=== PATIENT | female | born 1965 | race Caucasian/White ===

== ENCOUNTER → 2017-09-10 | Outpatient (CLI) | payer OTHER ==
--- NOTE | 2017-09-10 10:56 | REPMRS ---
Patient History The patient states she had a clinical breast exam in 09/11 Patient had first child at age 33. No known family history of cancer. Took hormonal contraceptives for 10 years. Digital Woman Screen Mammo: September 10, 2017 - Exam #: [id number] Bilateral CC and MLO view(s) were taken. Technologist: Aviva Lester, Technologist Prior study comparison: January 17, 2016, digital bilateral screening mammo, performed at [facility]. October 09, 2014, bilateral bilat screen digital mammo, performed at [facility] ([facility]). FINDINGS: The breast tissue is heterogeneously dense. This may lower the sensitivity of mammography. There is a fairly symmetric fibroglandular pattern in both breasts. There has been no interval development of masses, areas of architectural distortion or clusters of microcalcifications typical of malignancy. ASSESSMENT: BI-RADS/ACR category 2 mammogram. Benign finding(s). Recommendation Routine screening mammogram of both breasts in 1 year (for women over age 40). This mammogram was interpreted with the aid of an FDA-approved computer-aided dectection system. Electronically Signed By: Benitez Marquez MD 09/10/17 1306
== END ==
LOC: M WHC 09:41
PROVIDERS: ATTEND Family Medicine
DX: Z12.31 Encounter for screening mammogram for malignant neoplasm of breast (principal)

== ENCOUNTER → 2018-05-18 | Outpatient (REF) | payer OTHER ==
[2018-05-18 17:44] LABS: RHEUMATOID FACTOR QUANT < 10.0 IU/ML (<15.0)
[2018-05-18 17:44] LABS: C REACTIVE PROTEIN QUANTITATIV 0.39 MG/DL (0.00-0.30)
[2018-05-20 15:06] LABS: ANTINUCLEAR ANTIBODIES DIRECT Negative (Negative)
== END ==
LOC: M LAB REF 16:47
DX: M25.50 Pain in unspecified joint (principal); R25.2 Cramp and spasm

== ENCOUNTER → 2018-09-23 | Outpatient (CLI) | payer OTHER | LOC: M WHC 09:48 | DX: Z12.31 Encounter for screening mammogram for malignant neoplasm of breast (principal); Z92.0 Personal history of contraception | CPT/HCPCS: 77067 ==

== ENCOUNTER → 2019-08-04 | Outpatient (REF) | payer OTHER ==
[2019-08-04 16:51] LABS: APPEARANCE, URINE MANUAL CLOUDY (CLEAR); BILIRUBIN, URINE MANUAL OBSCURED (NEGATIVE); COLOR, URINE MANUAL DK YELLOW (YELLOW); GLUCOSE, URINE (UA) MANUAL OBSCURED mg/dL (NEGATIVE); KETONE, URINE MANUAL OBSCURED mg/dL (NEGATIVE); LEUKOCYTE ESTERASE, URINE MAN OBSCURED (NEGATIVE); NITRITE, URINE MANUAL OBSCURED (NEGATIVE); PH,URINE MAN OBSCURED UNITS (5.0 - 7.0); PROTEIN, URINE MANUAL OBSCURED mg/dL (NEGATIVE); SPECIFIC GRAVITY,URINE MANUAL 1.013 (1.002-1.035); UROBILINOGEN, URINE MANUAL OBSCURED mg/dl (NORMAL)
[2019-08-04 16:52] LABS: BLOOD URINE MANUAL OBSCURED (NEGATIVE)
[2019-08-04 17:14] LABS: BACTERIA, URINE LARGE AMOUNT; RBC, URINE TNTC /hpf (0-3); SQUAMOUS EPITHELIAL CELL URINE SMALL AMOUNT /hpf (SMALL AMT); TRANSITIONAL EPI CELLS, URINE LARGE AMOUNT /hpf; WBC, URINE TNTC /hpf (0-3)
[2019-08-04 17:15] LABS: HYALINE CAST, URINE NONE SEEN /lpf (0-1)
== END ==
LOC: M SFHCCAPE 09:52
PROVIDERS: ATTEND Physician Assistant
DX: R30.0 Dysuria (principal)

== ENCOUNTER → 2020-08-14 | Outpatient (CLI) | payer OTHER ==
[~2020-08-14] MED LIST: METHACHOLINE KIT (J7674) INH ONE
--- NOTE | 2020-08-14 10:21 | PFTRPT ---
Height: 68.00 Inches Weight: 170.00 Lbs BSA: 1.91 Diagnosis: R05 DATE: 08/14/2020 Ordering Provider: Leslie Celeste RN, ANP Quality: Study is excellent technical quality. Procedure: Under protocol, methacholine is administered. Even after a maximum dose of 25 mg or 188.875 CVUs, no provocation dose ever achieved. IMPRESSION: Negative methacholine challenge study. MTDD
== END ==
LOC: M CARPUL 09:25
PROVIDERS: ATTEND Nurse Practitioner Adult Health
DX: R05 Cough (principal)
CPT/HCPCS: 94070; J7674

== ENCOUNTER → 2020-10-03 | Outpatient (CLI) | payer OTHER ==
--- NOTE | 2020-10-03 15:56 | REPVR ---
PROCEDURE INFORMATION: Exam: CT Maxillofacial Without Contrast, Sinus Exam date and time: 10/03/2020 3:31 PM Age: 55 years old Clinical indication: Sinusitis; Chronic; Additional info: Chronic pansinusitis TECHNIQUE: Imaging protocol: CT Maxillofacial without contrast. Focus on the sinuses. Axial and coronal reformatted images were created and reviewed. Radiation optimization: All CT scans at this facility use at least one of these dose optimization techniques: automated exposure control; mA and/or kV adjustment per patient size (includes targeted exams where dose is matched to clinical indication); or iterative reconstruction. COMPARISON: No relevant prior studies available. FINDINGS: Frontal sinuses: Normal. No air-fluid levels. Ethmoid air cells: Minimal ethmoid mucosal thickening. No air-fluid levels. Sphenoid sinuses: Tiny left sphenoid sinus polyp versus mucous retention cyst. No air-fluid levels. Maxillary sinuses: Normal. No air-fluid levels. Ostiomeatal units patent. Nasal cavity/Septum: Unremarkable. Orbital cavity: Orbits are normal. Globes unremarkable. Bones/joints: Unremarkable. Soft tissues: Unremarkable. IMPRESSION: Minimal chronic paranasal sinus disease, as described above. Electronically signed by: Robert Boyd On 10/03/2020 15:56:19 PM
== END ==
LOC: M RAD 15:13
PROVIDERS: ATTEND Specialist
DX: J32.4 Chronic pansinusitis (principal); J34.2 Deviated nasal septum

== ENCOUNTER → 2021-01-03 | Outpatient (CLI) | payer OTHER ==
[~2021-01-03] MED LIST changes: +AMBI10TA PO; +FISH1000 PO; +FLON1SPR; +HYDR-3490 PO; +IRON27TA2 PO; +LORA-243 PO; +LOSA50TA88 PO; -METHACHOLINE KIT (J7674) INH ONE; +MIRA3350 PO; +PANT40TA29 PO; +PRESCAP PO; +SING10TA32 PO
== END ==
LOC: M LABSMTC 10:10
PROVIDERS: ATTEND Anesthesiology
DX: Z01.812 Encounter for preprocedural laboratory examination (principal); Z20.822 Contact with and (suspected) exposure to COVID-19

== ENCOUNTER 2021-01-08 07:16 | Day surgery (SDC) | payer OTHER ==
[~2021-01-08] VITALS: Ht 172.7 cm; Wt 78.9 kg
[2021-01-08] MEDS ORDERED: PERCOCET PO (07:40)
[2021-01-08] MEDS ORDERED: DOXY-350 PO (07:40)
[2021-01-08] MEDS ORDERED: MIDAZOLAM INJ 2MG/2ML VIAL (J2250 PER 1MG) As Ordered ONE (08:43)
[2021-01-08] MEDS ORDERED: fentaNYL 100 MCG/2 ML INJECTION (J3010) As Ordered ONE ×2 (08:43→09:59)
[2021-01-08] MEDS ORDERED: ONDANSETRON 4MG/2ML VIAL As Ordered ONE (08:43)
[2021-01-08] MEDS ORDERED: LIDOCAINE 2% 100MG/5ML SDV (FOR ANES.) As Ordered ONE (08:43)
[2021-01-08] MEDS ORDERED: dexameTHASONE 4 MG/ML 1ML VIAL (J1100 PER 1MG) As Ordered ONE (08:43)
[2021-01-08] MEDS ORDERED: ROCURONIUM BROMIDE 50 MG/5 ML VIAL As Ordered ONE (08:43)
[2021-01-08] MEDS ORDERED: propofoL 200 MG/20 ML VIAL As Ordered ONE (08:43)
[2021-01-08] MEDS ORDERED: LIDOCAINE W/EPINEPHRINE 1% 20ML VIAL As Ordered ONE (09:25)
[2021-01-08] MEDS ORDERED: OXYMETAZOLINE 0.05% NASAL SPRAY (AFRIN) As Ordered ONE (09:26)
[2021-01-08] MEDS ORDERED: METHYLENE BLUE 0.5% (5MG/ML) 10 ML AMP (PROVAYBLUE) As Ordered ONE (09:27)
[2021-01-08] MEDS ORDERED: ACETAMINOPHEN 1000MG 100ML IV BTL (OFIRMEV) (J0131 PER 10MG) As Ordered ONE (09:57)
[2021-01-08] MEDS ORDERED: SUGAMMADEX SODIUM 500 MG/5 ML VIAL (BRIDION) As Ordered ONE (10:15)
[2021-01-08] MEDS ORDERED: PHENYLephrine 500MCG 5ML (100MCG/ML) SYRINGE As Ordered ONE (10:29)
[2021-01-08] MEDS ORDERED: ePHEDrine SULFATE 25 MG/5 ML(5MG/ML) SYRINGE As Ordered ONE (10:29)
[2021-01-08] MEDS ORDERED: oxyCODONE 5MG TAB PO PRN (11:00)
[2021-01-08] MEDS ORDERED: LR 1,000 ML IV SCH (11:00)
[2021-01-08] MEDS ORDERED: HYDROMORPHONE HCL 0.5 MG/ 0.5 ML SYRINGE (J1170 PER 1) IV PRN (11:00)
[2021-01-08] MEDS ORDERED: ONDANSETRON 4MG/2ML VIAL IV PRN (11:00)
[2021-01-08] MEDS ORDERED: PERCOCET 5MG/325MG TAB PO PRN (11:00)
[2021-01-08] MEDS ORDERED: fentaNYL 100 MCG/2 ML INJECTION (J3010) IV PRN (11:00)
[2021-01-08] MEDS ORDERED: IBUPROFEN 800 MG TAB PO PRN (11:00)
[2021-01-08 11:30] VITALS: BP 165/77
== END 2021-01-08 11:54 | disposition home or self-care (01) ==
LOC: M SDC 07:16
PROVIDERS: ATTEND Specialist
DX: J34.2 Deviated nasal septum (principal); J31.0 Chronic rhinitis; I10 Essential (primary) hypertension; K21.9 Gastro-esophageal reflux disease without esophagitis; Z79.899 Other long term (current) drug therapy; Z88.0 Allergy status to penicillin
CPT/HCPCS: 30140; 30520; 88300; J0131; J1100; J2250; J2370; J2405; J3010; Q9968

== ENCOUNTER → 2023-03-16 | Outpatient (REF) | payer OTHER ==
[~2023-03-16] MED LIST changes: +DOXY-444 PO; +LOSA50TA28 PO; -LOSA50TA88 PO; +MONT-5 PO; +PERCOCET PO; -SING10TA32 PO
== END ==
LOC: M SFHCWAGY 18:52
PROVIDERS: ATTEND Nurse Practitioner Family
DX: Z12.4 Encounter for screening for malignant neoplasm of cervix (principal); N95.2 Postmenopausal atrophic vaginitis
CPT/HCPCS: 87624; G0123

== ENCOUNTER → 2024-04-01 | Outpatient (CLI) | payer OTHER ==
[~2024-04-01] MED LIST changes: +DOXY-440 PO; -DOXY-444 PO
== END ==
LOC: M WUC 14:39
PROVIDERS: ATTEND Family Medicine
DX: R05.9 Cough, unspecified (principal)

== ENCOUNTER → 2024-09-21 | Outpatient (CLI) | payer OTHER | LOC: M PLAIMG 08:28 | PROVIDERS: ATTEND Family Medicine | DX: R04.2 Hemoptysis (principal) ==